=== PATIENT | female | born 1955 | race Caucasian/White ===

== ENCOUNTER 2020-07-25 10:58 | Emergency (ER) | payer MEDICARE, OTHER, SELFPAY ==
[2020-07-25] VITALS (24 sets, daily range): BP systolic 133–190; BP diastolic 67–86; PULSE 74–96; RESP 12–32; TEMP 36.4; O2SAT 97–100; BMI 32.2
--- NOTE | 2020-07-25 11:08 | DI.RAD.S_ITS ---
PROCEDURE: XR CHEST 1V INDICATIONS: chest pain TECHNIQUE: One view of the chest was acquired. COMPARISON: [facility], , CHEST 1 VIEW, 01/01/2018, 16:09. FINDINGS: Surgical changes and devices: None. Lungs and pleura: Lungs are clear. No pleural effusions or pneumothorax. Mediastinum: Mediastinal contours appear normal. Heart size is normal. Bones and chest wall: No suspicious bony lesions. Overlying soft tissues appear unremarkable. IMPRESSION: No acute cardiopulmonary pathology. Dictated by: Harley Lazo M.D. on 07/25/2020 at 10:58 Approved by: Harley Lazo M.D. on 07/25/2020 at 11:01
[2020-07-25] MEDS: ASPIRIN 81 MG CHEW TAB 324 MG PO (11:28)
[2020-07-25 11:29] LABS: Add Manual Diff / Slide Review NO; Basophils Absolute Auto 0 /uL (0-100); Basophils Percent Auto 0.4 % (0-2); Eosinophils Absolute Auto 100 /uL (0-450); Eosinophils Percent Auto 1.3 % (2-4); Hematocrit 42.2 % (36-46); Hemoglobin 14.1 g/dL (12.0-16.0); Lymphocytes Absolute Auto 1100 /uL (1100-4500); Lymphocytes Percent Auto 19.7 % (25-40); Mean Corpuscular HGB Conc 33.5 % (30-36); Mean Corpuscular Hemoglobin 30.1 PG (26-34); Mean Corpuscular Volume 89.9 fL (80-100); Monocytes Absolute Auto 500 /uL (0-900); Monocytes Percent Auto 9.1 % (3-14); Neutrophils Absolute Auto 4100 /uL (1500-7000); Neutrophils Percent Auto 69.5 % (50-75); Platelet Count 169 X10^3/uL (150-400); Red Cell Distribution Width 13.6 % (11.6-14.8); White Blood Cell Count 5.8 X10^3/uL (4.5-11.0)
[2020-07-25] MEDS: NITROGLYCERIN 0.4 MG SL TAB SL ×2 (11:29→12:17)
[2020-07-25 11:32] LABS: INR 1.1 (0.9-1.3); Prothrombin Time 12.8 SECONDS (10.1-12.7)
[2020-07-25] MEDS: ACETAMINOPHEN 325 MG TABLET 975 MG PO (11:33)
[2020-07-25 11:34] LABS: PTT Partial Thromboplastin Tim 31 SECONDS (26.4-36.2)
[2020-07-25 11:36] LABS: Alanine Aminotransferase 28 IU/L (<35); Albumin 4.8 g/dL (3.5-5.0); Albumin Globulin Ratio 1.5 (1.0-2.8); Alkaline Phosphatase 67 U/L (38-126); Aspartate Aminotransferase 37 IU/L (14-36); Bilirubin Total 0.8 mg/dL (0.2-1.3); Blood Urea Nitrogen 17 mg/dL (7-17); Calcium 9.9 mg/dL (8.4-10.2); Carbon Dioxide 26 mmol/L (22-32); Chloride 103 mmol/L (98-107); Creatine Kinase 139 U/L (30-135); Estimated Glomerular Filt Rate > 60.0 mL/min (>60); Globulin 3.3 g/dL (1.7-4.1); Glucose 99 mg/dL (80-110); Lipase 114 U/L (23-300); Potassium 4.1 mmol/L (3.4-5.1); Sodium 141 mmol/L (137-145); Total Protein 8.1 g/dL (6.3-8.2)
[2020-07-25 11:41] LABS: HEMOLYSIS 52 (0-50)
[2020-07-25] MEDS: MAG HYDROX/ALUMINUM/SIMETH SUS 20 ML, LIDOCAINE VISCOUS 2% 15 ML PO (11:45)
[2020-07-25 11:47] LABS: Troponin I < 0.012 ng/mL (0.01-0.034)
[2020-07-25 11:51] LABS: CKMB % Relative Index 0.3 % (1.5-5.0); Creatine Kinase MB 0.38 ng/mL (<2.37)
--- NOTE | 2020-07-25 12:11 | DI.CT.S_ITS ---
PROCEDURE: CT ABDOMEN PELVIS W CON INDICATIONS: Significant epigastric pain, history of hiatal hernia TECHNIQUE: After the administration of intravenous contrast, 5 mm thick sections acquired from the diaphragm to the symphysis. 5 mm coronal and sagittal reformats were acquired. For radiation dose reduction, the following was used: automated exposure control, adjustment of mA and/or kV according to patient size. [facility], CT, PE STUDY (CTA CHEST), 01/01/2018, 17:57. 1.5 centimeter cystCOMPARISON: FINDINGS: Image quality: Excellent. ABDOMEN: Lung bases: Lung bases are clear. Heart size is normal. Solid organs: Liver is normal in size and enhancement. 1.6 centimeter cyst in the right lobe of the liver is stable compared to prior CT examination. 1.3 centimeter cyst in the left lobe of the liver is stable where visualized compared to prior CT examination. Gallbladder contains multiple calcified gallstones.. Biliary system is non dilated. Pancreas enhances normally. Spleen is normal in size and enhancement. No adrenal nodules. Kidneys demonstrate normal size and enhancement, without hydronephrosis. Peritoneum and bowel: Bowel loops demonstrate normal wall thickness and caliber. No free fluid or air. Appendix is normal. Nodes and vessels: No retroperitoneal or mesenteric adenopathy by size criteria. Aorta and inferior vena cava are normal in size. Miscellaneous: No ventral hernias. PELVIS: Genitourinary: Bladder wall thickness is normal. Uterus is absent. Miscellaneous: No inguinal hernias or adenopathy. Bones: No suspicious bony lesions. No vertebral body compression fractures. Spine degenerative disc disease and facet arthropathy. IMPRESSION: 1. Cholelithiasis without CT evidence of cholecystitis. If there is clinical concern for cholecystitis, consider abdominal ultrasound or nuclear medicine HIDA for further evaluation. 2. No free fluid or free air. 3. No dilated loops of bowel. 4. The appendix is normal. Dictated by: Muriel Morin MD, PhD on 07/25/2020 at 12:46 Approved by: Muriel Morin MD, PhD on 07/25/2020 at 12:55
--- NOTE | 2020-07-25 12:14 | ED.CHESTPAIN ---
HPI - Chest Pain <SANDRA Carolina - Last Filed: 07/25/20 20:53> General Chief Complaint: Chest Pain Stated Complaint: tightness in chest/shortness of breath/dizzy Time Seen by Provider: 07/25/20 11:05 Source: patient Mode of arrival: Ambulatory History of Present Illness HPI narrative: 65yo female with a history of a hiatal hernia, presents to the ED for chest tightness that started 4 days ago. Patient states on Friday she moved a few heavy planters around but did not experience any pain. That evening, hearing in chest tightness, shortness of breath, epigastric pain, lightheadedness, nausea, and significant fatigue. Patient states she has had the chest tightness intermittently for the past few days, is worse when she takes a deep breath. This morning the chest tightness started at 0730 and has been consistent today. She denies any history of cardiac issues, no history surgeries on her hiatal hernia. Denies any vomiting, sharp shooting pain, syncope, diarrhea, fevers, cough, sore throat, rhinorrhea, or any other concerns. Patient states she occasionally takes omeprazole for her hiatal hernia. Patient also states she has COPD type respiratory issues, she states she uses her albuterol every once in a while. Has not used her albuterol lately it has been outside with smoke frequently. Related Data Home Medications Medication Instructions Recorded Confirmed albuterol sulfate 1 inh INHALATION QID PRN 07/25/20 07/25/20 duloxetine 30 mg PO DAILY 07/25/20 07/25/20 hydrochlorothiazide 12.5 mg PO DAILY 07/25/20 07/25/20 lidocaine 1 patch TOPICAL DAILY PRN 07/25/20 07/25/20 omeprazole 20 mg PO DAILY PRN 07/25/20 07/25/20 Allergies Allergy/AdvReac Type Severity Reaction Status Date / Time doxycycline [DOXYCYCLINE] AdvReac Mild NAUSEA Verified 07/25/20 11:19 erythromycin base AdvReac Unknown GI UPSET Verified 07/25/20 11:19 [ERYTHROMYCIN BASE] morphine [MORPHINE] AdvReac Unknown HALLUCINATI Verified 07/25/20 11:19 ON Review of Systems <SANDRA Carolina - Last Filed: 07/25/20 20:53> Review of Systems Narrative: REVIEW OF SYSTEMS: GENERAL: Denies fever, chills, malaise, or wt. loss. HENT: No head trauma. EYES: No vision changes. CARDIOVASCULAR: Reports chest tightness, see HPI. RESPIRATORY: No shortness of breath or cough. GASTROINTESTINAL: Complains of epigastric pain, see HPI GENITOURINARY: No flank pain. MUSCULOSKELETAL: No pain, weakness, or trauma. INTEGUMENTARY: No rash, lesions, or pruritus. NEURO: Reports dizziness, see HPI. PSYCH: No behavior or mood changes. Patient History <SANDRA Carolina - Last Filed: 07/25/20 20:53> Medical History Hiatal hernia (Acute) Social History Smoking Status: Never smoker Smoking Status: Never smoker alcohol intake frequency: a few times a month Substance Use Type: does not use Exam <SANDRA Carolina - Last Filed: 07/25/20 20:53> Initial Vital Signs Initial Vital Signs: Vital Signs Temperature 97.6 F 07/25/20 11:05 Pulse Rate 77 07/25/20 11:05 Respiratory Rate 12 07/25/20 11:05 Blood Pressure 190/86 H 07/25/20 11:05 Pulse Oximetry 99 07/25/20 11:05 PHYSICAL EXAMINATION: GENERAL: Well groomed, alert, and cooperative. Answers questions promptly and appropriately. Vital signs noted. HENT: Normocephalic, atraumatic. Hearing intact. Oral mucosa is pink and moist. EYES: Conjunctiva pink, sclera white, no periorbital swelling. CARDIOVASCULAR: S1 and S2 sounds normal. Regular rate and rhythm, no murmurs, clicks, or bruits. 1+ nonpitting edema to left lower extremity, right lower extremity without edema. RESPIRATORY: Normal respiratory rate, trachea midline, airway patent. No stridor, nasal flaring or accessory muscle use. Lungs are clear in all scherer without wheeze, rhonchi, or crackles. GASTROINTESTINAL: Bowel sounds normoactive. Abdomen is soft, epigastric tenderness palpation.. No organomegaly, no palpable masses. GENITALURINARY: No flank tenderness. MUSCULOSKELETAL: Normal gait and coordination. Equal tone and mass bilaterally. EXTREMITIES: CMS intact, no pedal edema. SKIN: Warm, dry, soft, appropriate color for ethnicity. No lesions, rashes, or wounds to visualized areas. NEURO: Alert and Oriented X 3. Good coordination. No ataxia, or sensory deficits, or cognitive issues. PSYCH: Appropriate affect and mood. <Naman Colón MD - Last Filed: 08/22/20 03:07> Initial Vital Signs Initial Vital Signs: Vital Signs Temperature 97.6 F 07/25/20 11:05 Pulse Rate 77 07/25/20 11:05 Respiratory Rate 12 07/25/20 11:05 Blood Pressure 190/86 H 07/25/20 11:05 Pulse Oximetry 99 07/25/20 11:05 Scores <SANDRA Carolina - Last Filed: 07/25/20 20:53> HEART Score Heart Score history: Moderately Suspicious Heart Score EKG: Normal Heart Score Age: 45-64 years old Heart Score risk factors: 1-2 risk factors Heart Score troponin: < or = to normal limit Heart Score Total: 3 PERC Score Age greater than or equal to 50 years: Yes Heart rate greater than or equal to 100 bpm: No Room Air O2 Sat less than 95%: No Unilateral leg swelling: Yes Recent trauma or surgery: No Hemoptysis: No Prior PE or DVT: No Hormone Use: No Total PERC Score: 2 Course <SANDRA Carolina - Last Filed: 07/25/20 20:53> Course Course Narrative: Patient was given nitroglycerin, no relief of pain but patient did report headache. Additionally, patient was given GI cocktail, no relief of pain, actually reported increased epigastric irritation post GI cocktail. Cough for inhaler to patient to try to relieve symptoms, patient declined at this time. 1503: Spoke to Dr. Coe about possible admission, discussed heart score of 3 which is low risk. Discussed repeat troponin and EKG then discharge. Orders Ordered: Discontinued Medications Acetaminophen (Tylenol) 975 mg PO NOW ONE Stop: 07/25/20 11:32 Last Admin: 07/25/20 11:33 Dose: 975 mg Documented by: RHINA Aspirin (Aspirin Chew) 324 mg PO NOW ONE Stop: 07/25/20 11:20 Last Admin: 07/25/20 11:28 Dose: 324 mg Documented by: RHINA Al Hydrox/Mg Hydrox/Simethicone 20 ml/ Lidocaine HCl 15 ml 0 ml PO NOW ONE Stop: 07/25/20 11:41 Last Admin: 07/25/20 11:45 Dose: 45 ml Documented by: RHINA Nitroglycerin (Nitrostat) 0.4 mg SL [id number] PRN PRN Reason: Chest Pain Last Admin: 07/25/20 12:17 Dose: 0.4 mg Documented by: Admin: 07/25/20 11:29 Dose: 0.4 mg Documented by: RHINA Pantoprazole Sodium (Protonix) 40 mg IV NOW ONE Stop: 07/25/20 12:18 Last Admin: 07/25/20 12:59 Dose: 40 mg Documented by: TIANNA Consultations Consultation #1: Patient staffed with Dr. Cloón, discussed test, test results, and plan of care. Vital Signs Vital signs: Vital Signs - 8 hr 07/25/20 13:00 07/25/20 13:15 07/25/20 13:30 Pulse Rate 79 74 81 Respiratory Rate 31 H 20 17 Blood Pressure Pulse Oximetry 99 98 99 07/25/20 14:00 07/25/20 14:30 07/25/20 15:00 Pulse Rate 78 75 81 Respiratory Rate 22 16 21 Blood Pressure Pulse Oximetry 99 99 99 07/25/20 15:30 07/25/20 15:46 Pulse Rate 75 75 Respiratory Rate 18 15 Blood Pressure 150/74 H Pulse Oximetry 99 99 <Naman Colón MD - Last Filed: 08/22/20 03:07> Orders Ordered: Discontinued Medications Acetaminophen (Tylenol) 975 mg PO NOW ONE Stop: 07/25/20 11:32 Last Admin: 07/25/20 11:33 Dose: 975 mg Documented by: RHINA Aspirin (Aspirin Chew) 324 mg PO NOW ONE Stop: 07/25/20 11:20 Last Admin: 07/25/20 11:28 Dose: 324 mg Documented by: RHINA Al Hydrox/Mg Hydrox/Simethicone 20 ml/ Lidocaine HCl 15 ml 0 ml PO NOW ONE Stop: 07/25/20 11:41 Last Admin: 07/25/20 11:45 Dose: 45 ml Documented by: RHINA Nitroglycerin (Nitrostat) 0.4 mg SL [id number] PRN PRN Reason: Chest Pain Last Admin: 07/25/20 12:17 Dose: 0.4 mg Documented by: Admin: 07/25/20 11:29 Dose: 0.4 mg Documented by: RHINA Pantoprazole Sodium (Protonix) 40 mg IV NOW ONE Stop: 07/25/20 12:18 Last Admin: 07/25/20 12:59 Dose: 40 mg Documented by: TIANNA Vital Signs Vital signs: Vital Signs - 8 hr 07/25/20 13:00 07/25/20 13:15 07/25/20 13:30 Pulse Rate 79 74 81 Respiratory Rate 31 H 20 17 Blood Pressure Pulse Oximetry 99 98 99 07/25/20 14:00 07/25/20 14:30 07/25/20 15:00 Pulse Rate 78 75 81 Respiratory Rate 22 16 21 Blood Pressure Pulse Oximetry 99 99 99 07/25/20 15:30 07/25/20 15:46 Pulse Rate 75 75 Respiratory Rate 18 15 Blood Pressure 150/74 H Pulse Oximetry 99 99 MDM - Chest Pain <SANDRA Carolina - Last Filed: 07/25/20 20:53> Medical Records Data Attestation: I reviewed the patient's medical records. Lab Data Attestation: I reviewed the patient's lab results. Result diagrams: 07/25/20 11:16 07/25/20 11:16 Labs: Lab Results 07/25/20 07/25/20 07/25/20 Range/Units 11:16 11:16 11:16 WBC 5.8 (4.5-11.0) X10^3/uL RBC 4.70 (4.0-5.2) X10^6/uL Hgb 14.1 (12.0-16.0) g/dL Hct 42.2 (36-46) % MCV 89.9 (80-100) fL MCH 30.1 (26-34) PG MCHC 33.5 (30-36) % RDW 13.6 (11.6-14.8) % Plt Count 169 (150-400) X10^3/uL Neut % (Auto) 69.5 (50-75) % Lymph % (Auto) 19.7 L (25-40) % [place] % (Auto) 9.1 (3-14) % Eos % (Auto) 1.3 L (2-4) % Baso % (Auto) 0.4 (0-2) % Neut # (Auto) 4100 (2536-9069) /uL Lymph # (Auto) 1100 (4048-8644) /uL [place] # (Auto) 500 (0-900) /uL Eos # (Auto) 100 (0-450) /uL Baso # (Auto) 0 (0-100) /uL PT 12.8 H (10.1-12.7) SECONDS INR 1.1 (0.9-1.3) APTT 31 (26.4-36.2) SECONDS D-Dimer (<230) ng/mL Sodium 141 (137-145) mmol/L Potassium 4.1 (3.4-5.1) mmol/L Chloride 103 (98-107) mmol/L Carbon Dioxide 26 (22-32) mmol/L BUN 17 (7-17) mg/dL Creatinine 0.68 (0.52-1.04) mg/dL Estimated GFR > 60.0 (>60) mL/min BUN/Creatinine Ratio 25.0 H (6-22) Glucose 99 (80-110) mg/dL Calcium 9.9 (8.4-10.2) mg/dL Total Bilirubin 0.8 (0.2-1.3) mg/dL AST 37 H (14-36) IU/L ALT 28 (<35) IU/L Alkaline Phosphatase 67 (38-126) U/L Total Creatine Kinase 139 H (30-135) U/L CK-MB (CK-2) 0.38 (<2.37) ng/mL CK-MB (CK-2) Rel Index 0.3 L (1.5-5.0) % Troponin I < 0.012 (0.01-0.034) ng/mL NT-Pro-B Natriuret Pep (<125) pg/mL Total Protein 8.1 (6.3-8.2) g/dL Albumin 4.8 (3.5-5.0) g/dL Globulin 3.3 (1.7-4.1) g/dL Albumin/Globulin Ratio 1.5 (1.0-2.8) Lipase 114 (23-300) U/L COVID-19 PCR (Negative) 07/25/20 07/25/20 07/25/20 Range/Units 11:16 14:06 14:06 WBC (4.5-11.0) X10^3/uL RBC (4.0-5.2) X10^6/uL Hgb (12.0-16.0) g/dL Hct (36-46) % MCV (80-100) fL MCH (26-34) PG MCHC (30-36) % RDW (11.6-14.8) % Plt Count (150-400) X10^3/uL Neut % (Auto) (50-75) % Lymph % (Auto) (25-40) % [place] % (Auto) (3-14) % Eos % (Auto) (2-4) % Baso % (Auto) (0-2) % Neut # (Auto) (3025-9594) /uL Lymph # (Auto) (3950-9673) /uL [place] # (Auto) (0-900) /uL Eos # (Auto) (0-450) /uL Baso # (Auto) (0-100) /uL PT (10.1-12.7) SECONDS INR (0.9-1.3) APTT (26.4-36.2) SECONDS D-Dimer < 200 (<230) ng/mL Sodium (137-145) mmol/L Potassium (3.4-5.1) mmol/L Chloride (98-107) mmol/L Carbon Dioxide (22-32) mmol/L BUN (7-17) mg/dL Creatinine (0.52-1.04) mg/dL Estimated GFR (>60) mL/min BUN/Creatinine Ratio (6-22) Glucose (80-110) mg/dL Calcium (8.4-10.2) mg/dL Total Bilirubin (0.2-1.3) mg/dL AST (14-36) IU/L ALT (<35) IU/L Alkaline Phosphatase (38-126) U/L Total Creatine Kinase (30-135) U/L CK-MB (CK-2) (<2.37) ng/mL CK-MB (CK-2) Rel Index (1.5-5.0) % Troponin I < 0.012 (0.01-0.034) ng/mL NT-Pro-B Natriuret Pep 130 H (<125) pg/mL Total Protein (6.3-8.2) g/dL Albumin (3.5-5.0) g/dL Globulin (1.7-4.1) g/dL Albumin/Globulin Ratio (1.0-2.8) Lipase (23-300) U/L COVID-19 PCR (Negative) 07/25/20 Range/Units 15:00 WBC (4.5-11.0) X10^3/uL RBC (4.0-5.2) X10^6/uL Hgb (12.0-16.0) g/dL Hct (36-46) % MCV (80-100) fL MCH (26-34) PG MCHC (30-36) % RDW (11.6-14.8) % Plt Count (150-400) X10^3/uL Neut % (Auto) (50-75) % Lymph % (Auto) (25-40) % [place] % (Auto) (3-14) % Eos % (Auto) (2-4) % Baso % (Auto) (0-2) % Neut # (Auto) (2175-5900) /uL Lymph # (Auto) (4629-4346) /uL [place] # (Auto) (0-900) /uL Eos # (Auto) (0-450) /uL Baso # (Auto) (0-100) /uL PT (10.1-12.7) SECONDS INR (0.9-1.3) APTT (26.4-36.2) SECONDS D-Dimer (<230) ng/mL Sodium (137-145) mmol/L Potassium (3.4-5.1) mmol/L Chloride (98-107) mmol/L Carbon Dioxide (22-32) mmol/L BUN (7-17) mg/dL Creatinine (0.52-1.04) mg/dL Estimated GFR (>60) mL/min BUN/Creatinine Ratio (6-22) Glucose (80-110) mg/dL Calcium (8.4-10.2) mg/dL Total Bilirubin (0.2-1.3) mg/dL AST (14-36) IU/L ALT (<35) IU/L Alkaline Phosphatase (38-126) U/L Total Creatine Kinase (30-135) U/L CK-MB (CK-2) (<2.37) ng/mL CK-MB (CK-2) Rel Index (1.5-5.0) % Troponin I (0.01-0.034) ng/mL NT-Pro-B Natriuret Pep (<125) pg/mL Total Protein (6.3-8.2) g/dL Albumin (3.5-5.0) g/dL Globulin (1.7-4.1) g/dL Albumin/Globulin Ratio (1.0-2.8) Lipase (23-300) U/L COVID-19 PCR Negative (Negative) Imaging Data Chest x-ray: Radiologist's Impression: [address] [address] XRay Report Signed Patient: Lorna Mcdonald EMR#: [id number] : 5Acct:[id number] Age/Sex: 65 / FDate of Service: 07/25/20 Loc: ED Accession Number: [id number] Procedure: XR chest 1V Ordering Provider: Naman Colón MD PROCEDURE: XR CHEST 1V INDICATIONS: chest pain TECHNIQUE: One view of the chest was acquired. COMPARISON: [facility], , CHEST 1 VIEW, 01/01/2018, 16:09. FINDINGS: Surgical changes and devices: None. Lungs and pleura: Lungs are clear. No pleural effusions or pneumothorax. Mediastinum: Mediastinal contours appear normal. Heart size is normal. Bones and chest wall: No suspicious bony lesions. Overlying soft tissues appear unremarkable. IMPRESSION: No acute cardiopulmonary pathology. Dictated by: Harley Lazo M.D. on 07/25/2020 at 10:58 Approved by: Harley Lazo M.D. on 07/25/2020 at 11:01 ECG Data Interpretation: 1104: Rate 76, NJ interval 150, QTC 423. No ST elevation or ST depression. T-wave inversion noted in V1. No ectopy. EKG also viewed Dr. Colón per protocol. 1516: Sinus rhythm, rate 73, NJ interval 174, QTC 438. No ST elevation or ST depression. T-wave inversion noted in V1. No ST. EKG also viewed by Dr. Colón. No changes from previous EKG today. [facility] Narrative Medical decision making narrative: 65-year-old female presenting to the emergency department for epigastric pain, fatigue, and shortness of breath. Unsure exact etiology, concern for acid reflux aggravating possible reactive airway disease. Less concern for PE given negative D-dimer, patient is non tachycardic and non tachypneic. Pulse ox within normal limits. Less concern for cardiac etiology given negative serial EKGs and troponins, no relief with Nitro. Less concern for incarcerated hiatal hernia or worsened hiatal hernia given lack of bulge or concerning symptoms seen on abdominal CT. Less concern for infection given lack of cough, afebrile, non tachycardic, lungs clear. Less concern for CHF, given negative BNP, no significant pitting bilateral lower edema. Attempted to offer computer inhaler to assess possibl e reactive airway disease, patient declined at this time. She remained alert and oriented, hemodynamically stable, able to ambulate without any difficulty. After discussion with hospitalist and attending ED physician, patient was consider the risks and discharge with close follow-up. Return precautions given for new worsening symptoms. Patient agreed to plan of care verbalized understanding <Naman Colón MD - Last Filed: 08/22/20 03:07> Lab Data Labs: Lab Results 07/25/20 07/25/20 07/25/20 Range/Units 11:16 11:16 11:16 WBC 5.8 (4.5-11.0) X10^3/uL RBC 4.70 (4.0-5.2) X10^6/uL Hgb 14.1 (12.0-16.0) g/dL Hct 42.2 (36-46) % MCV 89.9 (80-100) fL MCH 30.1 (26-34) PG MCHC 33.5 (30-36) % RDW 13.6 (11.6-14.8) % Plt Count 169 (150-400) X10^3/uL Neut % (Auto) 69.5 (50-75) % Lymph % (Auto) 19.7 L (25-40) % [place] % (Auto) 9.1 (3-14) % Eos % (Auto) 1.3 L (2-4) % Baso % (Auto) 0.4 (0-2) % Neut # (Auto) 4100 (4725-1969) /uL Lymph # (Auto) 1100 (6217-9602) /uL [place] # (Auto) 500 (0-900) /uL Eos # (Auto) 100 (0-450) /uL Baso # (Auto) 0 (0-100) /uL PT 12.8 H (10.1-12.7) SECONDS INR 1.1 (0.9-1.3) APTT 31 (26.4-36.2) SECONDS D-Dimer (<230) ng/mL Sodium 141 (137-145) mmol/L Potassium 4.1 (3.4-5.1) mmol/L Chloride 103 (98-107) mmol/L Carbon Dioxide 26 (22-32) mmol/L BUN 17 (7-17) mg/dL Creatinine 0.68 (0.52-1.04) mg/dL Estimated GFR > 60.0 (>60) mL/min BUN/Creatinine Ratio 25.0 H (6-22) Glucose 99 (80-110) mg/dL Calcium 9.9 (8.4-10.2) mg/dL Total Bilirubin 0.8 (0.2-1.3) mg/dL AST 37 H (14-36) IU/L ALT 28 (<35) IU/L Alkaline Phosphatase 67 (38-126) U/L Total Creatine Kinase 139 H (30-135) U/L CK-MB (CK-2) 0.38 (<2.37) ng/mL CK-MB (CK-2) Rel Index 0.3 L (1.5-5.0) % Troponin I < 0.012 (0.01-0.034) ng/mL NT-Pro-B Natriuret Pep (<125) pg/mL Total Protein 8.1 (6.3-8.2) g/dL Albumin 4.8 (3.5-5.0) g/dL Globulin 3.3 (1.7-4.1) g/dL Albumin/Globulin Ratio 1.5 (1.0-2.8) Lipase 114 (23-300) U/L COVID-19 PCR (Negative) 07/25/20 07/25/20 07/25/20 Range/Units 11:16 14:06 14:06 WBC (4.5-11.0) X10^3/uL RBC (4.0-5.2) X10^6/uL Hgb (12.0-16.0) g/dL Hct (36-46) % MCV (80-100) fL MCH (26-34) PG MCHC (30-36) % RDW (11.6-14.8) % Plt Count (150-400) X10^3/uL Neut % (Auto) (50-75) % Lymph % (Auto) (25-40) % [place] % (Auto) (3-14) % Eos % (Auto) (2-4) % Baso % (Auto) (0-2) % Neut # (Auto) (9593-1932) /uL Lymph # (Auto) (9228-5068) /uL [place] # (Auto) (0-900) /uL Eos # (Auto) (0-450) /uL Baso # (Auto) (0-100) /uL PT (10.1-12.7) SECONDS INR (0.9-1.3) APTT (26.4-36.2) SECONDS D-Dimer < 200 (<230) ng/mL Sodium (137-145) mmol/L Potassium (3.4-5.1) mmol/L Chloride (98-107) mmol/L Carbon Dioxide (22-32) mmol/L BUN (7-17) mg/dL Creatinine (0.52-1.04) mg/dL Estimated GFR (>60) mL/min BUN/Creatinine Ratio (6-22) Glucose (80-110) mg/dL Calcium (8.4-10.2) mg/dL Total Bilirubin (0.2-1.3) mg/dL AST (14-36) IU/L ALT (<35) IU/L Alkaline Phosphatase (38-126) U/L Total Creatine Kinase (30-135) U/L CK-MB (CK-2) (<2.37) ng/mL CK-MB (CK-2) Rel Index (1.5-5.0) % Troponin I < 0.012 (0.01-0.034) ng/mL NT-Pro-B Natriuret Pep 130 H (<125) pg/mL Total Protein (6.3-8.2) g/dL Albumin (3.5-5.0) g/dL Globulin (1.7-4.1) g/dL Albumin/Globulin Ratio (1.0-2.8) Lipase (23-300) U/L COVID-19 PCR (Negative) 07/25/20 Range/Units 15:00 WBC (4.5-11.0) X10^3/uL RBC (4.0-5.2) X10^6/uL Hgb (12.0-16.0) g/dL Hct (36-46) % MCV (80-100) fL MCH (26-34) PG MCHC (30-36) % RDW (11.6-14.8) % Plt Count (150-400) X10^3/uL Neut % (Auto) (50-75) % Lymph % (Auto) (25-40) % [place] % (Auto) (3-14) % Eos % (Auto) (2-4) % Baso % (Auto) (0-2) % Neut # (Auto) (1643-1700) /uL Lymph # (Auto) (8199-2417) /uL [place] # (Auto) (0-900) /uL Eos # (Auto) (0-450) /uL Baso # (Auto) (0-100) /uL PT (10.1-12.7) SECONDS INR (0.9-1.3) APTT (26.4-36.2) SECONDS D-Dimer (<230) ng/mL Sodium (137-145) mmol/L Potassium (3.4-5.1) mmol/L Chloride (98-107) mmol/L Carbon Dioxide (22-32) mmol/L BUN (7-17) mg/dL Creatinine (0.52-1.04) mg/dL Estimated GFR (>60) mL/min BUN/Creatinine Ratio (6-22) Glucose (80-110) mg/dL Calcium (8.4-10.2) mg/dL Total Bilirubin (0.2-1.3) mg/dL AST (14-36) IU/L ALT (<35) IU/L Alkaline Phosphatase (38-126) U/L Total Creatine Kinase (30-135) U/L CK-MB (CK-2) (<2.37) ng/mL CK-MB (CK-2) Rel Index (1.5-5.0) % Troponin I (0.01-0.034) ng/mL NT-Pro-B Natriuret Pep (<125) pg/mL Total Protein (6.3-8.2) g/dL Albumin (3.5-5.0) g/dL Globulin (1.7-4.1) g/dL Albumin/Globulin Ratio (1.0-2.8) Lipase (23-300) U/L COVID-19 PCR Negative (Negative) Discharge Plan Departure Patient Disposition: Home Clinical Impression: Chest tightness Discharge Date/Time: 07/25/20 16:05 Instructions: DI for Atypical Chest Pain Activity Restrictions/Additional Instructions: Thank you for entrusting me with your care today. As discussed, your laboratory work, abdominal CT, chest x-ray, and COVID-19 swab are negative for any concerning findings. Am unsure the exact cause of your pain, this means it is very important that you call your primary care provider to follow-up within the next 1-2 weeks for further evaluation and testing if indicated. I suggest taking Pepcid, which is [id number] 1 to 2 times a day to help with acid reflux. Additionally, use your albuterol inhaler for shortness of breath over the next few days to help decrease symptoms. Return emergency department for any new or worsening symptoms at any point. Prescriptions: No Action lidocaine 5 % adhesive patch,medicated 1 patch topical DAILY PRN (Reason: pain / discomfort) RF: 0 omeprazole 20 mg capsule,delayed release(DR/EC) 20 mg PO DAILY PRN (Reason: reflux) RF: 0 duloxetine 30 mg capsule,delayed release(DR/EC) 30 mg PO DAILY RF: 0 hydrochlorothiazide 12.5 mg tablet 12.5 mg PO DAILY RF: 0 albuterol sulfate 90 mcg/actuation Hfa Aerosol Inhaler 1 inh INHALATION QID PRN (Reason: Wheezing) RF: 0 Referrals: Rose Ernst PA-C [Primary Care Provider] -
--- NOTE | 2020-07-25 12:21 | PC.NURSE ---
Patient reports she noticed the GI cocktail aleman off while 2nd nitro was dissolving. Patient states discomfort is actually .5 worse. I just feel like I can't relax, I feel jittery
[2020-07-25 12:56] LABS: NT-proBNP (BNP-Adult 18+) 130 pg/mL (<125)
[2020-07-25] MEDS: PANTOPRAZOLE 40 MG VIAL IV (12:59)
[2020-07-25 14:30] LABS: D Dimer < 200 ng/mL (<230)
[2020-07-25 15:35] LABS: Troponin I < 0.012 ng/mL (0.01-0.034)
[2020-07-25 15:38] LABS: COVID19 -Nasal RAPID Negative (Negative)
== END 2020-07-25 16:05 | disposition home or self-care (01) ==
PROVIDERS: Emergency Medicine; Emergency Provider Nurse Practitioner; PCP Physician Assistant
DX: R07.89 Other chest pain (principal)
CPT/HCPCS: 36415; 71045; 74177; 80053; 82550; 82553; 83690; 83880; 84484; 85025; 85379; 85610; 85730; 87635; 93005; 96374; 99284; 99285; C9113

== ENCOUNTER 2021-10-29 12:26 | Emergency (ER) | payer MEDICARE, OTHER, SELFPAY ==
[2021-10-29] VITALS (30 sets, daily range): BP systolic 135–201; BP diastolic 63–92; PULSE 68–82; RESP 20–31; TEMP 36.4; O2SAT 98–100; BMI 34.3
--- NOTE | 2021-10-29 12:38 | DI.RAD.S_ITS ---
PROCEDURE: XR CHEST 1V INDICATIONS: chest pain TECHNIQUE: One view of the chest was acquired. COMPARISON: [facility], CR, XR CHEST 1V, 07/25/2020, 11:10. FINDINGS: Surgical changes and devices: None. Lungs and pleura: Lungs are clear. No pleural effusions or pneumothorax. Mediastinum: Mediastinal contours appear unchanged. Heart size is normal. Bones and chest wall: No suspicious bony lesions. Overlying soft tissues appear unremarkable. IMPRESSION: No acute cardiopulmonary abnormality. Dictated by: Dhruv Maurer M.D. on 10/29/2021 at 13:05 Approved by: Dhruv Maurer M.D. on 10/29/2021 at 13:06
[2021-10-29 13:01] LABS: Add Manual Diff / Slide Review NO; Basophils Absolute Auto 0 /uL (0-100); Basophils Percent Auto 0.5 % (0-2); Eosinophils Absolute Auto 100 /uL (0-450); Hematocrit 42.1 % (36-46); Hemoglobin 14.3 g/dL (12.0-16.0); Lymphocytes Absolute Auto 1100 /uL (1100-4500); Lymphocytes Percent Auto 19.1 % (25-40); Mean Corpuscular HGB Conc 34.1 % (30-36); Mean Corpuscular Hemoglobin 30.3 PG (26-34); Mean Corpuscular Volume 88.8 fL (80-100); Monocytes Absolute Auto 500 /uL (0-900); Monocytes Percent Auto 8.4 % (3-14); Neutrophils Absolute Auto 4000 /uL (1500-7000); Platelet Count 160 X10^3/uL (150-400); Red Blood Cell Count 4.74 X10^6/uL (4.0-5.2); White Blood Cell Count 5.8 X10^3/uL (4.5-11.0)
[2021-10-29 13:10] LABS: Alanine Aminotransferase 20 IU/L (<35); Albumin 4.8 g/dL (3.5-5.0); Albumin Globulin Ratio 1.4 (1.0-2.8); Alkaline Phosphatase 61 U/L (38-126); Aspartate Aminotransferase 29 IU/L (14-36); BUN Creatinine Ratio 26.3 (6-22); Bilirubin Total 0.7 mg/dL (0.2-1.3); Blood Urea Nitrogen 20 mg/dL (7-17); Calcium 10.4 mg/dL (8.4-10.2); Carbon Dioxide 24 mmol/L (22-32); Chloride 106 mmol/L (98-107); Creatine Kinase 40 U/L (30-135); Estimated Glomerular Filt Rate > 60.0 mL/min (>60); Globulin 3.5 g/dL (1.7-4.1); Glucose 109 mg/dL (80-110); HEMOLYSIS 25 (0-50); Lipase 82 U/L (23-300); Magnesium 1.9 mg/dL (1.6-2.3); Potassium 3.9 mmol/L (3.4-5.1); Sodium 141 mmol/L (137-145); Total Protein 8.3 g/dL (6.3-8.2)
[2021-10-29 13:21] LABS: Troponin I < 0.012 ng/mL (0.01-0.034)
[2021-10-29 13:34] LABS: COVID19 - ADMIT (NP swab/PCR) Negative (Negative)
[2021-10-29] MEDS: MAG HYDROX/ALUMINUM/SIMETH SUS 20 ML, LIDOCAINE VISCOUS 2% 15 ML PO (13:43)
[2021-10-29 16:25] LABS: Troponin I < 0.012 ng/mL (0.01-0.034)
--- NOTE | 2021-10-29 18:31 | ED.CHESTPAIN ---
HPI - Chest Pain General Chief Complaint: Chest Pain Stated Complaint: Chest Pain/SOB Time Seen by Provider: 10/29/21 18:05 Source: patient Mode of arrival: Ambulatory Limitations: no limitations Limitations: no limitations History of Present Illness HPI narrative: Patient is a 66-year-old female who arrives emergency department for evaluation of chest discomfort and shortness of breath. She does have a hiatal hernia. She has had discomfort for the past couple days. She states that Nexium gives her constipation so she is not on any reflux medications. Discomfort does not change with eating or movement. Not worse with palpation. She did receive a GI cocktail prior to my evaluation which potentially help her symptoms small amount. Related Data Home Medications Medication Instructions Recorded Confirmed albuterol sulfate 90 mcg/actuation 1 inh INHALATION QID PRN 07/25/20 10/29/21 aerosol inhaler duloxetine 30 mg capsule,delayed 90 mg PO QAM 07/25/20 10/29/21 release hydrochlorothiazide 12.5 mg tablet 12.5 mg PO DAILY 07/25/20 10/29/21 lidocaine 5 % topical patch 1 patch TOPICAL DAILY PRN 07/25/20 10/29/21 Previous Rx's Medication Instructions Recorded sucralfate 100 mg/mL oral 10 ml PO QACHS #420 ml 10/29/21 suspension (Carafate) Allergies Allergy/AdvReac Type Severity Reaction Status Date / Time doxycycline [DOXYCYCLINE] AdvReac Mild NAUSEA Verified 10/29/21 13:19 erythromycin base AdvReac Unknown GI UPSET Verified 10/29/21 13:19 [ERYTHROMYCIN BASE] morphine [MORPHINE] AdvReac Unknown HALLUCINATI Verified 10/29/21 13:19 ON Review of Systems Constitutional Constitutional: Reports system reviewed and no additional complaints, except as documented and Denies fever(s) Cardiovascular Cardiovascular: Reports as per HPI and Reports system reviewed and no additional complaints, except as documented Respiratory Respiratory: Reports as per HPI and Reports system reviewed and no additional complaints, except as documented Gastrointestinal Gastrointestinal: Denies change in bowel habits, Denies nausea and Denies vomiting Genitourinary Genitourinary: Reports system reviewed and no additional complaints, except as documented Musculoskeletal Musculoskeletal: Reports system reviewed and no additional complaints, except as documented Integumentary/Breasts Skin/Breast: Reports system reviewed and no additional complaints, except as documented Neurologic Neurologic: Reports system reviewed and no additional complaints, except as documented Hematologic/Lymphatic On Anticoagulants: No Patient History Medical History Hiatal hernia Social History Smoking Status: Never smoker Smoking Status: Never smoker alcohol intake frequency: a few times a month Substance Use Type: does not use Exam Initial Vital Signs Initial Vital Signs: Vital Signs Temperature 97.5 F L 10/29/21 12:30 Pulse Rate 80 10/29/21 12:30 Respiratory Rate 20 10/29/21 12:30 Blood Pressure 201/92 H 10/29/21 12:30 Pulse Oximetry 98 10/29/21 12:30 HENMT Head: normal to inspection and normocephalic Resp Effort & Inspection: normal respiratory effort Auscultation: clear to auscultation bilaterally Cardio Rate: regular rate Rhythm: regular rhythm GI Inspection: normal to inspection Palpation: soft, No firm and No tender Skin General: no rashes or lesions noted Neuro General: patient alert, patient awake, patient oriented x3 and moves all extremities Speech: speech normal Gait: normal gait Extrem General: normal to inspection and capillary refill normal Psych Appearance: grossly normal and well kempt Course Orders Ordered: ED Orders 10/29/21 15:40 EKG-12 Lead Stat 10/29/21 15:55 Troponin I Stat Discontinued Medications Al Hydrox/Mg Hydrox/Simethicone 20 ml/ Lidocaine HCl 15 ml 0 ml PO NOW ONE Stop: 10/29/21 13:30 Last Admin: 10/29/21 13:43 Dose: 35 ml Documented by: RHINA Vital Signs Vital signs: Vital Signs - 8 hr 10/29/21 16:45 10/29/21 17:00 10/29/21 17:01 Pulse Rate 72 79 Respiratory Rate 23 22 Blood Pressure 135/63 Pulse Oximetry 99 98 10/29/21 17:15 10/29/21 17:30 10/29/21 17:45 Pulse Rate 78 77 80 Respiratory Rate 22 20 28 H Blood Pressure 141/67 H Pulse Oximetry 99 99 99 10/29/21 18:00 10/29/21 18:15 10/29/21 18:30 Pulse Rate 82 81 78 Respiratory Rate 27 H 28 H 31 H Blood Pressure 152/83 H 166/88 H Pulse Oximetry 98 98 99 10/29/21 18:45 Pulse Rate 79 Respiratory Rate 29 H Blood Pressure Pulse Oximetry 99 MDM - Chest Pain Lab Data Attestation: I reviewed the patient's lab results. Result diagrams: 10/29/21 12:47 10/29/21 12:47 Labs: Lab Results 10/29/21 10/29/21 10/29/21 Range/Units 12:47 12:47 12:50 WBC 5.8 (4.5-11.0) X10^3/uL RBC 4.74 (4.0-5.2) X10^6/uL Hgb 14.3 (12.0-16.0) g/dL Hct 42.1 (36-46) % MCV 88.8 (80-100) fL MCH 30.3 (26-34) PG MCHC 34.1 (30-36) % RDW 14.0 (11.6-14.8) % Plt Count 160 (150-400) X10^3/uL Neut % (Auto) 70.0 (50-75) % Lymph % (Auto) 19.1 L (25-40) % [place] % (Auto) 8.4 (3-14) % Eos % (Auto) 2.0 (2-4) % Baso % (Auto) 0.5 (0-2) % Neut # (Auto) 4000 (1384-5187) /uL Lymph # (Auto) 1100 (3077-2558) /uL [place] # (Auto) 500 (0-900) /uL Eos # (Auto) 100 (0-450) /uL Baso # (Auto) 0 (0-100) /uL Sodium 141 (137-145) mmol/L Potassium 3.9 (3.4-5.1) mmol/L Chloride 106 (98-107) mmol/L Carbon Dioxide 24 (22-32) mmol/L BUN 20 H (7-17) mg/dL Creatinine 0.76 (0.52-1.04) mg/dL Estimated GFR > 60.0 (>60) mL/min BUN/Creatinine Ratio 26.3 H (6-22) Glucose 109 (80-110) mg/dL Calcium 10.4 H (8.4-10.2) mg/dL Magnesium 1.9 (1.6-2.3) mg/dL Total Bilirubin 0.7 (0.2-1.3) mg/dL AST 29 (14-36) IU/L ALT 20 (<35) IU/L Alkaline Phosphatase 61 (38-126) U/L Total Creatine Kinase 40 (30-135) U/L CK-MB (CK-2) TNP CK-MB (CK-2) Rel Index TNP Troponin I < 0.012 (0.01-0.034) ng/mL Total Protein 8.3 H (6.3-8.2) g/dL Albumin 4.8 (3.5-5.0) g/dL Globulin 3.5 (1.7-4.1) g/dL Albumin/Globulin Ratio 1.4 (1.0-2.8) Lipase 82 (23-300) U/L SARS-CoV-2 (PCR) Negative (Negative) 10/29/21 Range/Units 15:55 WBC (4.5-11.0) X10^3/uL RBC (4.0-5.2) X10^6/uL Hgb (12.0-16.0) g/dL Hct (36-46) % MCV (80-100) fL MCH (26-34) PG MCHC (30-36) % RDW (11.6-14.8) % Plt Count (150-400) X10^3/uL Neut % (Auto) (50-75) % Lymph % (Auto) (25-40) % [place] % (Auto) (3-14) % Eos % (Auto) (2-4) % Baso % (Auto) (0-2) % Neut # (Auto) (0405-1769) /uL Lymph # (Auto) (6214-8747) /uL [place] # (Auto) (0-900) /uL Eos # (Auto) (0-450) /uL Baso # (Auto) (0-100) /uL Sodium (137-145) mmol/L Potassium (3.4-5.1) mmol/L Chloride (98-107) mmol/L Carbon Dioxide (22-32) mmol/L BUN (7-17) mg/dL Creatinine (0.52-1.04) mg/dL Estimated GFR (>60) mL/min BUN/Creatinine Ratio (6-22) Glucose (80-110) mg/dL Calcium (8.4-10.2) mg/dL Magnesium (1.6-2.3) mg/dL Total Bilirubin (0.2-1.3) mg/dL AST (14-36) IU/L ALT (<35) IU/L Alkaline Phosphatase (38-126) U/L Total Creatine Kinase (30-135) U/L CK-MB (CK-2) CK-MB (CK-2) Rel Index Troponin I < 0.012 (0.01-0.034) ng/mL Total Protein (6.3-8.2) g/dL Albumin (3.5-5.0) g/dL Globulin (1.7-4.1) g/dL Albumin/Globulin Ratio (1.0-2.8) Lipase (23-300) U/L SARS-CoV-2 (PCR) (Negative) Imaging Data Chest x-ray: Radiologist's Impression: [address] [address] XRay Report Signed Patient: Lorna Mcdonald MR#: [id number] : 1955 Acct:[id number] Age/Sex: 66 / F Date of Service: 10/29/21 Loc: ED Accession Number: [id number] ?? Procedure: XR chest 1V Ordering Provider: Linda Blank MD PROCEDURE:? XR CHEST 1V ? INDICATIONS:? chest pain ? TECHNIQUE:? One view of the chest was acquired.? ? COMPARISON:? [facility], , XR CHEST 1V, 07/25/2020, 11:10. ? FINDINGS:? ? Surgical changes and devices:? None.? ? Lungs and pleura:? Lungs are clear.? No pleural effusions or pneumothorax.? ? Mediastinum:? Mediastinal contours appear unchanged.? Heart size is normal.? ? Bones and chest wall:? No suspicious bony lesions.? Overlying soft tissues appear unremarkable.? ? IMPRESSION:? No acute cardiopulmonary abnormality. ? ? ? Dictated by: Dhruv Maurer M.D. on 10/29/2021 at 13:05 ? ? Approved by: Dhruv Maurer M.D. on 10/29/2021 at 13:06?? ECG Data Attestation: I personally reviewed and interpreted this ECG as follows: Interpretation: Initial EKG Sinus rhythm Ventricular rate 80 Normal axis Normal QRS Normal QTC No ST T wave changes Repeat EKG Sinus rhythm Ventricular rate of 71 Normal axis Normal QRS Normal QTC No ST T wave changes MDM Narrative Medical decision making narrative: EKG x2 was unremarkable. Chest x-ray is unremarkable. Troponin x2 is negative. I do have a high suspicion that her presenting symptoms are GI in origin. We did discuss other things she could try to include Carafate and also a H2 elana. We discussed the importance of contacting her primary doctor for a follow-up to discuss further workup of both potential GI and cardiac origin. She was given return precautions. She expressed understanding and agreement. Discharge Plan Departure Patient Disposition: Home Clinical Impression: Atypical chest pain, Gastroesophageal reflux disease Instructions: DI for Gastroesophageal Reflux Disease (GERD), DI for Atypical Chest Pain Activity Restrictions/Additional Instructions: I recommend that you try medicine called famotidine/Pepcid. You can purchase this [id number]. You can also take the Carafate like we discussed. Contact your primary doctor for further workup. Return to the emergency department for any new or worsening symptoms. Prescriptions: New sucralfate [Carafate] 100 mg/mL suspension 10 ml PO QACHS Qty: 420 0RF No Action lidocaine 5 % adhesive patch,medicated 1 patch topical DAILY PRN (Reason: pain / discomfort) 0RF duloxetine 30 mg capsule,delayed release(DR/EC) 90 mg PO QAM 0RF hydrochlorothiazide 12.5 mg tablet 12.5 mg PO DAILY 0RF albuterol sulfate 90 mcg/actuation Hfa Aerosol Inhaler 1 inh INHALATION QID PRN (Reason: Wheezing) 0RF Referrals: Rose Ernst PA-C [Primary Care Provider] -
== END 2021-10-29 18:56 | disposition home or self-care (01) ==
PROVIDERS: Emergency Medicine; Emergency Provider Emergency Medicine; PCP Physician Assistant
DX: R07.89 Other chest pain (principal); K21.9 Gastro-esophageal reflux disease without esophagitis; Z20.822 Contact with and (suspected) exposure to COVID-19
CPT/HCPCS: 36415; 71045; 80053; 82550; 83690; 83735; 84484; 85025; 87635; 93005; 99284; C9803

== ENCOUNTER → 2021-12-27 17:15 | Outpatient (CLI) | payer MEDICARE, OTHER, SELFPAY ==
[2021-12-27 18:01] LABS: Add Manual Diff / Slide Review NO; Basophils Absolute Auto 0 /uL (0-100); Basophils Percent Auto 0.7 % (0-2); Eosinophils Absolute Auto 200 /uL (0-450); Eosinophils Percent Auto 2.7 % (2-4); Hematocrit 40.5 % (36-46); Hemoglobin 13.4 g/dL (12.0-16.0); Lymphocytes Absolute Auto 1700 /uL (1100-4500); Lymphocytes Percent Auto 25.5 % (25-40); Mean Corpuscular Hemoglobin 29.5 PG (26-34); Mean Corpuscular Volume 89.4 fL (80-100); Monocytes Absolute Auto 700 /uL (0-900); Monocytes Percent Auto 10.4 % (3-14); Neutrophils Absolute Auto 4000 /uL (1500-7000); Neutrophils Percent Auto 60.7 % (50-75); Platelet Count 212 X10^3/uL (150-400); Red Blood Cell Count 4.53 X10^6/uL (4.0-5.2); Red Cell Distribution Width 13.6 % (11.6-14.8); White Blood Cell Count 6.6 X10^3/uL (4.5-11.0)
[2021-12-27 18:17] LABS: Alanine Aminotransferase 30 IU/L (<35); Albumin 4.8 g/dL (3.5-5.0); Albumin Globulin Ratio 1.4 (1.0-2.8); Alkaline Phosphatase 56 U/L (38-126); Aspartate Aminotransferase 35 IU/L (14-36); BUN Creatinine Ratio 19.8 (6-22); Bilirubin Total 0.4 mg/dL (0.2-1.3); Blood Urea Nitrogen 17 mg/dL (7-17); Calcium 9.7 mg/dL (8.4-10.2); Carbon Dioxide 29 mmol/L (22-32); Chloride 101 mmol/L (98-107); Estimated Glomerular Filt Rate > 60.0 mL/min (>60); Globulin 3.5 g/dL (1.7-4.1); Glucose 103 mg/dL (80-110); HEMOLYSIS < 15 (0-50); Potassium 3.7 mmol/L (3.4-5.1); Sodium 138 mmol/L (137-145); Total Protein 8.3 g/dL (6.3-8.2)
== END ==
PROVIDERS: PCP Physician Assistant; Referring Provider Surgery; Visit Provider Surgery
DX: R10.32 Left lower quadrant pain (principal)
CPT/HCPCS: 36415; 80053; 85025; 99214

== ENCOUNTER → 2022-01-03 11:25 | Outpatient (CLI) | payer MEDICARE, SELFPAY ==
--- NOTE | 2022-01-03 11:31 | DI.CT.S_ITS ---
PROCEDURE: CT ABDOMEN PELVIS W CON INDICATIONS: Left lower quadrant pain TECHNIQUE: After the administration of intravenous contrast, axial sections acquired from the lung bases to the pubic symphysis. Coronal and sagittal reformats were performed. For radiation dose reduction, the following was used: automated exposure control, adjustment of mA and/or kV according to patient size. COMPARISON: [facility], CT, CT ABDOMEN PELVIS W CON, 07/25/2020, 12:33. FINDINGS: Lower thorax: The lung bases are clear. Heart size normal. No hiatal hernia. Liver: Normal in size and attenuation. No contour deformity present. Small right hepatic and left hepatic simple cyst measures 1.5 cm Biliary system: Multiple stones noted in the lumen the gallbladder layering dependently. No CT evidence of acute inflammatory change. Pancreas: Unremarkable without mass or inflammation evident. Spleen: Normal in size and density. Adrenals: Normal morphology and density. Reproductive system: Unremarkable as visualized. Urinary system: Normal renal size and attenuation. No renal calculi, hydronephrosis, or solid mass present. Urinary bladder unremarkable. Gastrointestinal system: The bowel is unremarkable without evidence of bowel obstruction or inflammation. The stomach appears unremarkable. There is a small diverticuli and trace inflammatory change noted at the distal aspect of the left descending colon. No abscess or free air present. Appendix: No findings to suggest acute appendicitis. Peritoneal spaces: No mesenteric or retroperitoneal adenopathy. No free air. No free fluid. Vasculature: The IVC, aorta and iliac vasculature are unremarkable. Abdominal wall: Abdominal wall intact without evidence of ventral or inguinal hernias. Musculoskeletal: Normal bone mineralization. No acute fractures. IMPRESSION: 1. Trace left pericolonic inflammatory change and single diverticuli consistent with a very mild uncomplicated diverticulitis. No abscess or obstruction. 2. Cholelithiasis without CT evidence of acute cholecystitis. Approved by: Benja Pacheco M.D. on 01/03/2022 at 14:08
--- NOTE | 2022-01-03 11:31 | DI.CT.S_ITS ---
PROCEDURE: CT ANGIO CHEST PE PROTOCOL INDICATIONS: Shortness of breath TECHNIQUE: Helical axial CT of the chest was obtained after intravenous contrast injection utilizing an angiographic technique and reformatted in multiple planes. Radiation dose reduction was achieved utilizing automated exposure control and/or adjustment of the dose parameters according to patient's size. COMPARISON: [facility], CT, PE STUDY (CTA CHEST), 01/01/2018, 17:57. [facility], RG, CT ABDOMEN/PELVIS WITH CONTRAST, 12/21/2021, 5:50. FINDINGS: Image quality: Excellent. Pulmonary arteries: Pulmonary arteries are normal in size, and demonstrate no intraluminal filling defects to suggest central pulmonary embolism. Lungs and pleura: Lungs are clear. No pleural effusions or pneumothorax. Central and peripheral airways are patent. Mediastinum: Heart size is normal, without pericardial effusion. No mediastinal or hilar adenopathy. Thoracic aorta is normal in caliber and enhancement. Esophagus is normal in caliber, without hiatal hernia. Bones and chest wall: No suspicious bony lesions. Ribs and thoracic spine appear intact throughout. Thyroid gland contains a 1.6 cm hypodense right thyroid lesion. No axillary or supraclavicular adenopathy. Abdomen: Stones noted in the lumen of the gallbladder. 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 IMPRESSION: 1. No evidence of pulmonary embolism, aortic dissection or aneurysm. 2. Cholelithiasis and right thyroid nodule, similar to prior exam 2018. 3. 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 Approved by: Benja Pacheco M.D. on 01/03/2022 at 14:36
== END ==
PROVIDERS: PCP Physician Assistant Medical; Referring Provider Surgery; Visit Provider Surgery
DX: R06.02 Shortness of breath (principal); R10.32 Left lower quadrant pain; K80.20 Calculus of gallbladder without cholecystitis without obstruction; E04.1 Nontoxic single thyroid nodule; Q27.39 Arteriovenous malformation, other site
CPT/HCPCS: 71275; 74177

== ENCOUNTER → 2024-05-05 | Outpatient (CLI) | payer MEDICARE, SELFPAY ==
--- NOTE | 2024-05-05 | PATH_ITS ---
Note [facility] Accession Number: [id number] TESTS RESULT FLAG UNITS REF RANGE LAB Clinician Provided Cytology Information No. of containers..01 Other (Miscellaneous) No. of containers..08 Previously Prepared Cytology Slide Source: RIGHT THYROID NODULE DIAGNOSIS: RIGHT THYROID NODULE ATYPIA OF UNDETERMINED SIGNIFICANCE. [place] CATEGORY III. ATYPIA OF UNDETERMINED SIGNIFIANCE - NUCLEAR ATYPIA. MOLECULAR STUDIES PENDING; RESULTS WILL BE REPORTED SEPARATELY. Pathologist ICD10: R89.6 Signed out by: Arely Drake MD, Pathologist NPI- [id number] Performed by: Aleksandra Terry, Ergonomist ([facility]) Gross description: 30 CC, RED, CLEAR RECIEVED: IN CYTOLYT WITH 9 ALCOHOL FIXED AND 9 QUICK STAINED SLIDES ALSO 1 RNA VIAL WILL ON 08-08-2025.VO /VDU 05/06/2024 0635 Local FLAG LEGEND: L-Low Normal,H-High Normal,LL-Alert Low,HH-Alert High <-Panic Low,>-Panic High,A-Abnormal,AA-Critical Abnormal Performed at: 01 =[facility] [employer], [place] [address] Elver Mosqueda MD, Specimen Comment: [id number] Performed at: [address] [facility] [employer] [address], [place], [place] [id number] MD Elver Mosqueda MD Phone: [phone]
--- NOTE | 2024-05-05 12:40 | DI.US.S_ITS ---
PROCEDURE: US FINE NEEDLE ASPIRATION INDICATIONS: Nontoxic single thyroid nodule TECHNIQUE: The indications, alternatives, benefits, risks, and complications of the procedure were explained to the patient. Written informed consent was obtained and placed in the chart. The area of interest was examined sonographically and a site was chosen for ultrasound guided percutaneous sampling. The skin was prepared and draped in the usual fashion, and anesthetized with 1% lidocaine infiltrated from the skin down to the lesion. Multiple passes were then performed, with contents emptied into an appropriate pathology specimen container. A bandage was applied to the area of access at completion of the study. COMPARISON: Outside Facility, RG, US THYROID, 03/30/2024, 16:39. 03/30/2024 ultrasound thyroid. FINDINGS: Location(s) of lesion(s) sampled: Right thyroid [place]: 25 gauge hypodermic needles. Number of passes: 9 Medications: 1% lidocaine for local anaesthesia. Complications: None. IMPRESSION: Successful ultrasound-guided right thyroid fine needle aspiration, with cytology results pending. Dictated by: Oscar Barton M.D. on 05/19/2024 at 15:18 Approved by: Oscar Barton M.D. on 05/19/2024 at 15:20
== END ==
LOC: US 12:38
PROVIDERS: PCP Physician Assistant Medical; Referring Provider Physician Assistant Medical; Visit Provider Physician Assistant Medical
DX: E04.1 Nontoxic single thyroid nodule (principal)
CPT/HCPCS: 10005

== ENCOUNTER 2025-01-27 12:52 | Emergency (ER) | payer MEDICARE, SELFPAY ==
[2025-01-27 13:15] VITALS: BP 185/99; PULSE 85; RESP 18; TEMP 36.6; O2SAT 97; BMI 33.2
--- NOTE | 2025-01-27 13:20 | EKG_ITS ---
[address] [address] Test Date: 2025-01-27 Pat Name: Lorna Mcdonald Department: [facility] Room: Gender: Female Health Care Sanitary Technician: LAM : 1955 Requested By: Order Number: [id number] Reading MD: Emmanuel العلي Measurements Intervals [place] Rate: 83 P: 64 OK: 150 QRS: 32 QRSD: 82 T: 38 QT: 376 QTc: 441 Interpretive Statements Normal sinus rhythm Electronically Signed On 01-28-2025 19:10:19 PDT by Emmanuel العلي
[2025-01-27 14:29] LABS: Add Manual Diff / Slide Review NO; Basophils Absolute Auto 0 /uL (0-100); Basophils Percent Auto 0.4 % (0-2); Eosinophils Absolute Auto 100 /uL (0-450); Eosinophils Percent Auto 2.6 % (2-4); Hematocrit 41.3 % (36-46); Hemoglobin 13.8 g/dL (12.0-16.0); Lymphocytes Absolute Auto 1100 /uL (1100-4500); Lymphocytes Percent Auto 21.3 % (25-40); Mean Corpuscular HGB Conc 33.5 % (30-36); Mean Corpuscular Hemoglobin 30.2 PG (26-34); Mean Corpuscular Volume 90.2 fL (80-100); Monocytes Absolute Auto 500 /uL (0-900); Monocytes Percent Auto 9.8 % (3-14); Neutrophils Absolute Auto 3400 /uL (1500-7000); Neutrophils Percent Auto 65.9 % (50-75); Platelet Count 192 X10^3/uL (150-400); Red Blood Cell Count 4.58 X10^6/uL (4.0-5.2); Red Cell Distribution Width 14.1 % (11.6-14.8); White Blood Cell Count 5.2 X10^3/uL (4.5-11.0)
[2025-01-27 14:41] LABS: Alanine Aminotransferase 26 IU/L (<35); Albumin 5.1 g/dL (3.5-5.0); Albumin Globulin Ratio 1.8 (1.0-2.8); Alkaline Phosphatase 56 U/L (38-126); Aspartate Aminotransferase 31 IU/L (14-36); BUN Creatinine Ratio 23.8 (6-22); Bilirubin Total 0.8 mg/dL (0.2-1.3); Blood Urea Nitrogen 19 mg/dL (7-17); Calcium 10.5 mg/dL (8.4-10.2); Carbon Dioxide 22 mmol/L (22-32); Chloride 104 mmol/L (98-107); Estimated Glomerular Filt Rate > 60 mL/min (>60); Globulin 2.9 g/dL (1.7-4.1); Glucose 136 mg/dL (80-110); HEMOLYSIS < 15 (0-50); Lipase 72 U/L (23-300); Potassium 3.7 mmol/L (3.4-5.1); Sodium 141 mmol/L (137-145)
--- NOTE | 2025-01-27 15:48 | ED_ITS ---
HPI - Abdominal Pain <Rosa Zavala PA-C - Last Filed: 01/27/25 17:32> General Chief Complaint: Abdominal Pain Stated Complaint: Left lower side pain Time Seen by Provider: 01/27/25 15:27 Source: patient Mode of arrival: Ambulatory History of Present Illness HPI narrative: Ms. Mcdonald is a very pleasant 69-year-old female with a past medical history of hiatal hernia, total hysterectomy, diverticulitis, gallstones who presents to the emergency department for left lower quadrant abdominal pain x 2-3 days. Patient also feels slightly bloated in the left lower quadrant area of her abdomen, pain wraps around to her left low back region. She has slight nausea but no vomiting. Symptoms were precipitated by eating cheese pizza. She also had some constipation for approximately 2 days however she did have a normal soft bowel movement this morning. Reports that her symptoms feel very similar to when she had colitis in 2021, she saw General surgery Dr. Arango and had a CT with oral contrast which revealed a small area of diverticulitis. She denies any dysuria, hematuria, fevers, chills, diarrhea, melena, hematochezia, flank pain. Related Data Home Medications Medication Instructions Recorded Confirmed albuterol sulfate 90 mcg/actuation 1 inh inhalation QID PRN Wheezing 07/25/20 12/27/21 aerosol inhaler duloxetine 30 mg capsule,delayed 90 mg PO QAM 07/25/20 12/27/21 release hydrochlorothiazide 12.5 mg tablet 12.5 mg PO DAILY 07/25/20 12/27/21 lidocaine 5 % topical patch 1 patch topical DAILY PRN pain / 07/25/20 12/27/21 discomfort Previous Rx's Medication Instructions Recorded sucralfate 100 mg/mL oral 10 ml PO QACHS #420 mL 10/29/21 suspension (Carafate) amoxicillin 500 mg-potassium 1 tab PO TID #30 tabs 01/03/22 clavulanate 125 mg tablet (Augmentin) amoxicillin 875 mg-potassium 1 tab PO Q12H 10 days #20 tabs 01/27/25 clavulanate 125 mg tablet Allergies Allergy/AdvReac Type Severity Reaction Status Date / Time doxycycline [DOXYCYCLINE] AdvReac Mild NAUSEA Verified 12/27/21 16:24 erythromycin base AdvReac Unknown GI UPSET Verified 12/27/21 16:24 [ERYTHROMYCIN BASE] morphine [MORPHINE] AdvReac Unknown HALLUCINATI Verified 12/27/21 16:24 ON Review of Systems <Rosa Zavala PA-C - Last Filed: 01/27/25 17:32> Review of Systems ROS Unobtainable: All systems reviewed & are unremarkable except as noted in HPI and below Patient History <Rosa Zavala PA-C - Last Filed: 01/27/25 17:32> Medical History (Updated 01/27/25 @ 17:21 by Rosa Zavala PA-C) Hiatal hernia Social History Smoking Status: Never smoker Smoking Status: Never smoker alcohol intake frequency: a few times a month Exam <Rosa Zavala PA-C - Last Filed: 01/27/25 17:32> Narrative Exam Narrative: GENERAL: 69 year old patient appears stated age. Well-developed patient, in no acute distress. HEAD: Atraumatic. Normocephalic. NECK: Trachea midline. Cervical ROM intact. CARDIOVASCULAR: Regular rate and rhythm. RESPIRATORY: ?Nonlabored respirations. ?Speaking in clear, full sentences. ?Clear to auscultation. Breath sounds equal bilaterally. No wheezes, rales, or rhonchi. ? GASTROINTESTINAL: Abdomen soft, nondistended, bowel sounds present. She is tenderness to palpation of the left lower quadrant with no rebound or guarding. No erythema or obvious masses. EXTREMITIES: No edema or joint tenderness. BACK: No CVA tenderness. NEURO: AOx3. ?Clear speech. ?Moves all 4 extremities appropriately. SKIN: No rash or erythema of visible areas Initial Vital Signs Initial Vital Signs: Vital Signs Temperature 98 F 01/27/25 13:15 Pulse Rate 85 01/27/25 13:15 Respiratory Rate 18 01/27/25 13:15 Blood Pressure 185/99 H 01/27/25 13:15 Pulse Oximetry 97 01/27/25 13:15 Oxygen Delivery Method Room Air 01/27/25 13:15 <Farhana Mendoza DO - Last Filed: 02/04/25 09:14> Initial Vital Signs Initial Vital Signs: Vital Signs Temperature 98 F 01/27/25 13:15 Pulse Rate 85 01/27/25 13:15 Respiratory Rate 18 01/27/25 13:15 Blood Pressure 185/99 H 01/27/25 13:15 Pulse Oximetry 97 01/27/25 13:15 Oxygen Delivery Method Room Air 01/27/25 13:15 Course <Rosa Zavala PA-C - Last Filed: 01/27/25 17:32> Orders Ordered: Discontinued Medications Sodium Chloride (Normal Saline 0.9%) 1,000 mls @ 1,000 mls/hr IV BOLUS ONE Stop: 01/27/25 16:53 Last Infusion: 01/27/25 17:38 Dose: Infused Documented By: Admin: 01/27/25 16:12 Dose: 1,000 mls/hr Documented By: TI Ketorolac Tromethamine (Ketorolac 30 Mg/Ml Vial) 15 mg IV NOW ONE Stop: 01/27/25 15:55 Last Admin: 01/27/25 16:11 Dose: 15 mg Documented By: TI Ondansetron HCl (Ondansetron 4 Mg/2 Ml Inj) 4 mg IV NOW PRN PRN Reason: Nausea And Vomiting Ondansetron HCl (Ondansetron 4 Mg Odt) 4 mg PO NOW PRN PRN Reason: Nausea And Vomiting Ondansetron HCl (Ondansetron 4 Mg/2 Ml Inj) 4 mg IV NOW ONE Stop: 01/27/25 15:55 Last Admin: 01/27/25 16:12 Dose: 4 mg Documented By: TI Vital Signs Vital signs: Vital Signs - 8 hr 01/27/25 13:15 Temperature 98 F Pulse Rate 85 Respiratory Rate 18 Blood Pressure 185/99 H Pulse Oximetry 97 Oxygen Delivery Method Room Air <Farhana Mendoza DO - Last Filed: 02/04/25 09:14> Orders Ordered: Discontinued Medications Sodium Chloride (Normal Saline 0.9%) 1,000 mls @ 1,000 mls/hr IV BOLUS ONE Stop: 01/27/25 16:53 Last Infusion: 01/27/25 17:38 Dose: Infused Documented By: Admin: 01/27/25 16:12 Dose: 1,000 mls/hr Documented By: TI Ketorolac Tromethamine (Ketorolac 30 Mg/Ml Vial) 15 mg IV NOW ONE Stop: 01/27/25 15:55 Last Admin: 01/27/25 16:11 Dose: 15 mg Documented By: TI Ondansetron HCl (Ondansetron 4 Mg/2 Ml Inj) 4 mg IV NOW PRN PRN Reason: Nausea And Vomiting Ondansetron HCl (Ondansetron 4 Mg Odt) 4 mg PO NOW PRN PRN Reason: Nausea And Vomiting Ondansetron HCl (Ondansetron 4 Mg/2 Ml Inj) 4 mg IV NOW ONE Stop: 01/27/25 15:55 Last Admin: 01/27/25 16:12 Dose: 4 mg Documented By: TI Vital Signs Vital signs: Vital Signs - 8 hr 01/27/25 13:15 Temperature 98 F Pulse Rate 85 Respiratory Rate 18 Blood Pressure 185/99 H Pulse Oximetry 97 Oxygen Delivery Method Room Air MDM - Abdominal Pain <Rosa C LORENA Zavala - Last Filed: 01/27/25 17:32> Medical Records Attestation: I reviewed the patient's medical records. Medical records narrative: Reviewed general surgery note 12/27/2021 and prior abdomen/pelvis CT 01/03/2022 revealing [address] without CT evidence of acute cholecystitis, trace left pericolonic inflammatory change and single diverticula consistent with very mild uncomplicated diverticulitis. Lab Data 01/27/25 13:20 01/27/25 13:20 Labs: Lab Results 01/27/25 Range/Units 13:20 WBC 5.2 (4.5-11.0) X10^3/uL RBC 4.58 (4.0-5.2) X10^6/uL Hgb 13.8 (12.0-16.0) g/dL Hct 41.3 (36-46) % MCV 90.2 (80-100) fL MCH 30.2 (26-34) PG MCHC 33.5 (30-36) % RDW 14.1 (11.6-14.8) % Plt Count 192 (150-400) X10^3/uL Neut % (Auto) 65.9 (50-75) % Lymph % (Auto) 21.3 L (25-40) % Ross % (Auto) 9.8 (3-14) % Eos % (Auto) 2.6 (2-4) % Baso % (Auto) 0.4 (0-2) % Neut # (Auto) 3400 (3765-6293) /uL Lymph # (Auto) 1100 (2338-8673) /uL Ross # (Auto) 500 (0-900) /uL Eos # (Auto) 100 (0-450) /uL Baso # (Auto) 0 (0-100) /uL Sodium 141 (137-145) mmol/L Potassium 3.7 (3.4-5.1) mmol/L Chloride 104 (98-107) mmol/L Carbon Dioxide 22 (22-32) mmol/L BUN 19 H (7-17) mg/dL Creatinine 0.80 (0.52-1.04) mg/dL Estimated GFR > 60 (>60) mL/min BUN/Creatinine Ratio 23.8 H (6-22) Glucose 136 H (80-110) mg/dL Calcium 10.5 H (8.4-10.2) mg/dL Total Bilirubin 0.8 (0.2-1.3) mg/dL AST 31 (14-36) IU/L ALT 26 (<35) IU/L Alkaline Phosphatase 56 (38-126) U/L Total Protein 8.0 (6.3-8.2) g/dL Albumin 5.1 H (3.5-5.0) g/dL Globulin 2.9 (1.7-4.1) g/dL Albumin/Globulin Ratio 1.8 (1.0-2.8) Lipase 72 (23-300) U/L Point of care testing: Urine Dip Bedside Urine Glucose Negative Bedside Urine Bilirubin - Negative Bedside Urine Ketone + 15 Urine Specific Colony 1.015 Bedside Urine Occult Blood - Negative Bedside Urine pH 6.5 Bedside Urine Protein - Negative Bedside Urine Urobilinogen - Negative Bedside Urine Nitrite - Negative Bedside Urine Leukocytes - Negative Esterase Imaging Data CT scan - abdomen/pelvis: Radiologist's Impression: PROCEDURE: CT ABDOMEN PELVIS W CON INDICATIONS: LLQ abd pain rad to low back; hx diverticulitis TECHNIQUE: After the administration of intravenous contrast, axial sections acquired from the lung bases to the pubic symphysis. Coronal and sagittal reformats were performed. For radiation dose reduction, the following was used: automated exposure control, adjustment of mA and/or kV according to patient size. COMPARISON: [facility], CT, CT ABDOMEN PELVIS W CON, 01/03/2022, 11:38. FINDINGS: Image quality: Diagnostic Lower chest: Unremarkable lung bases Normal heart size Liver: Suspect right lobe cyst again seen. Far left lobe cyst also again seen. Gallbladder and biliary system: Cholelithiasis. Nondilated. Pancreas: No ductal dilation Spleen: Nonenlarged Adrenals: No discrete nodules Kidneys: No solid renal mass or hydronephrosis Vessels and lymph nodes: The main portal vein is patent. No abdominal aortic aneurysm. Mild atherosclerotic calcifications. No pathologic lymph nodes by size criteria. Bowel and peritoneum: No small bowel obstruction. Nondilated appendix. No acute bowel inflammatory changes. No drainable abscess or ascites. Body wall: Unremarkable Pelvis: Bladder is unremarkable. Uterus is absent Bones: No aggressive appearing osseous abnormality. There are degenerative changes. IMPRESSION: No CT evidence of bowel inflammation. No bowel obstruction. No drainable abscess or ascites. Nondilated appendix. Cholelithiasis. Other findings above. [facility] Narrative Medical decision making narrative: 69-year-old female with a past medical history of hiatal hernia, total hysterectomy, diverticulitis, gallstones who presents to the emergency department for left lower quadrant abdominal pain x 2-3 days. Differential diagnosis includes but is not limited to diverticulitis, colitis, UTI, intussusception, intra-abdominal abscess, nephrolithiasis, ureterolithiasis, etc. On exam patient is in no acute distress, nontoxic appearing, vital signs appropriate except for mildly elevated blood pressure. She is left lower quadrant abdominal tenderness, no rebound or guarding. We will check labs, CT abdomen and pelvis, treat with fluids Zofran and Toradol. Labs reveal normal WBC count 5.2, hemoglobin 13.8, hematocrit 41.3, sodium 141, potassium 3.7, BUN 19, creatinine 0.80. Glucose 136, calcium slightly elevated at 10.5. She received 1 L of IV fluids which will help with both hypercalcemia and the slightly elevated BUN/creatinine ratio. Urinalysis negative for infection, she does have some ketones. Patient's pain resolved after ED treatment. Her CT scan reveals no evidence of bowel inflammation, no bowel obstruction, no drainable abscess or ascites, nondilated appendix, cholelithiasis. Her CT scan report was printed and discussed with her including all incidental findings. At this time I believe her symptoms are likely due to constipation, underlying diverticulosis, perhaps early development of diverticulitis. After shared decision-making with the patient, we will not start antibiotics at this time however I did send her a course of Augmentin b.i.d. times 10 days to the pharmacy if she has persistent symptoms for the next few days while she is trialing clear liquid diet, Toradol for pain, MiraLax for constipation. Patient verbalized understanding of this however we also discussed strict ED return precautions and she understands that if she has any new or worsening pain, fevers or other symptoms to come back to the ED for further evaluation. Toradol and Augmentin were sent to her pharmacy of choice. Patient is feeling much better, abdominal exam benign, agreeable to the plan and stable for discharge home. ED return precautions discussed. <Farhana Mendoza, DO - Last Filed: 02/04/25 09:14> Lab Data Labs: Lab Results 01/27/25 Range/Units 13:20 WBC 5.2 (4.5-11.0) X10^3/uL RBC 4.58 (4.0-5.2) X10^6/uL Hgb 13.8 (12.0-16.0) g/dL Hct 41.3 (36-46) % MCV 90.2 (80-100) fL MCH 30.2 (26-34) PG MCHC 33.5 (30-36) % RDW 14.1 (11.6-14.8) % Plt Count 192 (150-400) X10^3/uL Neut % (Auto) 65.9 (50-75) % Lymph % (Auto) 21.3 L (25-40) % Ross % (Auto) 9.8 (3-14) % Eos % (Auto) 2.6 (2-4) % Baso % (Auto) 0.4 (0-2) % Neut # (Auto) 3400 (6504-6706) /uL Lymph # (Auto) 1100 (6557-0727) /uL Ross # (Auto) 500 (0-900) /uL Eos # (Auto) 100 (0-450) /uL Baso # (Auto) 0 (0-100) /uL Sodium 141 (137-145) mmol/L Potassium 3.7 (3.4-5.1) mmol/L Chloride 104 (98-107) mmol/L Carbon Dioxide 22 (22-32) mmol/L BUN 19 H (7-17) mg/dL Creatinine 0.80 (0.52-1.04) mg/dL Estimated GFR > 60 (>60) mL/min BUN/Creatinine Ratio 23.8 H (6-22) Glucose 136 H (80-110) mg/dL Calcium 10.5 H (8.4-10.2) mg/dL Total Bilirubin 0.8 (0.2-1.3) mg/dL AST 31 (14-36) IU/L ALT 26 (<35) IU/L Alkaline Phosphatase 56 (38-126) U/L Total Protein 8.0 (6.3-8.2) g/dL Albumin 5.1 H (3.5-5.0) g/dL Globulin 2.9 (1.7-4.1) g/dL Albumin/Globulin Ratio 1.8 (1.0-2.8) Lipase 72 (23-300) U/L Point of care testing: Urine Dip Bedside Urine Glucose Negative Bedside Urine Bilirubin - Negative Bedside Urine Ketone + 15 Urine Specific Colony 1.015 Bedside Urine Occult Blood - Negative Bedside Urine pH 6.5 Bedside Urine Protein - Negative Bedside Urine Urobilinogen - Negative Bedside Urine Nitrite - Negative Bedside Urine Leukocytes - Negative Esterase Discharge Plan Departure Patient Disposition: Home Clinical Impression: Abdominal pain, acute, left lower quadrant, Dehydration Constipation Qualifiers: Constipation type: unspecified constipation type Qualified Code(s): K59.00 - Constipation, unspecified Instructions: DI for Abdominal Pain-Adult Activity Restrictions/Additional Instructions: Dear Ms. Mcdonald, Thank you for coming to the emergency department. Today you were evaluated for left lower quadrant abdominal pain. The CT scan of your abdomen reveals no signs of bowel inflammation, obstruction or infection at this time. I am concerned that your symptoms are related to constipation, diverticulosis, potentially early development of diverticulitis. I would like you to eat a clear liquid diet for the next 1-2 days, then slowly increase to a soft diet and normal diet only as tolerated. Please use MiraLax daily with water to allow for softer bowel movements. You have been prescribed Toradol to use if needed for pain, you can also take this with acetaminophen/Tylenol if needed. You have been prescribed an antibiotic called Augmentin to take twice a day for 10 days IF your symptoms do not improve, as this is the treatment for diverticulitis. At this time, there is no indication that the antibiotics need to be started. Please however if you have any new or worsening symptoms, bloody stool, bloody vomit, fevers or severe pain return to ER. Please follow up with your primary care doctor within the next 2-3 days for ER follow-up. (If you do not have a PCP you can call [phone]. ?to schedule an appointment with an [facility] Primary Care Provider) IF YOU DEVELOP ANY NEW OR WORSENING SYMPTOMS, RETURN TO THE ER! Please read the attached instructions, they highlight more specific treatments and interventions for you at home. Thank you for letting me participate in your care, Rosa Zavala PA-C Prescriptions: New amoxicillin-pot clavulanate 875-125 mg tablet 1 tab PO Q12H 10 Days Qty: 20 0RF No Action amoxicillin-pot clavulanate [Augmentin] 500-125 mg tablet 1 tab PO TID Qty: 30 0RF sucralfate [Carafate] 100 mg/mL suspension 10 ml PO QACHS Qty: 420 0RF lidocaine 5 % adhesive patch,medicated 1 patch topical DAILY PRN (Reason: pain / discomfort) duloxetine 30 mg capsule,delayed release(DR/EC) 90 mg PO QAM hydrochlorothiazide 12.5 mg tablet 12.5 mg PO DAILY albuterol sulfate 90 mcg/actuation Hfa Aerosol Inhaler 1 inh INHALATION QID PRN (Reason: Wheezing) Referrals: Rose Ren PA-C [Primary Care Provider] - Stand Alone Forms: Patient Portal/API/Survey ED Sign-out <Farhana Mendoza DO - Last Filed: 02/04/25 09:14> Cosign ED Attending Samreen Attestation: I was available for consultation.
--- NOTE | 2025-01-27 16:02 | DI.CT.S_ITS ---
PROCEDURE: CT ABDOMEN PELVIS W CON INDICATIONS: LLQ abd pain rad to low back; hx diverticulitis TECHNIQUE: After the administration of intravenous contrast, axial sections acquired from the lung bases to the pubic symphysis. Coronal and sagittal reformats were performed. For radiation dose reduction, the following was used: automated exposure control, adjustment of mA and/or kV according to patient size. COMPARISON: [facility], CT, CT ABDOMEN PELVIS W CON, 01/03/2022, 11:38. FINDINGS: Image quality: Diagnostic Lower chest: Unremarkable lung bases Normal heart size Liver: Suspect right lobe cyst again seen. Far left lobe cyst also again seen. Gallbladder and biliary system: Cholelithiasis. Nondilated. Pancreas: No ductal dilation Spleen: Nonenlarged Adrenals: No discrete nodules Kidneys: No solid renal mass or hydronephrosis Vessels and lymph nodes: The main portal vein is patent. No abdominal aortic aneurysm. Mild atherosclerotic calcifications. No pathologic lymph nodes by size criteria. Bowel and peritoneum: No small bowel obstruction. Nondilated appendix. No acute bowel inflammatory changes. No drainable abscess or ascites. Body wall: Unremarkable Pelvis: Bladder is unremarkable. Uterus is absent Bones: No aggressive appearing osseous abnormality. There are degenerative changes. IMPRESSION: No CT evidence of bowel inflammation. No bowel obstruction. No drainable abscess or ascites. Nondilated appendix. Cholelithiasis. Other findings above. Dictated by: Ricardo Singh M.D. on 01/27/2025 at 16:26 Approved by: Ricardo Singh M.D. on 01/27/2025 at 16:30
[2025-01-27] MEDS: KETOROLAC 30 MG/ML VIAL 15 MG IV (16:11)
[2025-01-27] MEDS: SODIUM CHLORIDE 0.9% 1,000 ML 1000 ML IV (16:12)
[2025-01-27] MEDS: ONDANSETRON 4 MG/2 ML INJ IV (16:12)
[2025-01-27 17:43] VITALS: BP 181/82; PULSE 72; RESP 14; O2SAT 97
== END 2025-01-27 17:47 | disposition home or self-care (01) ==
PROVIDERS: Emergency Medicine; Emergency Provider Physician Assistant; PCP Physician Assistant Medical
DX: R10.32 Left lower quadrant pain (principal); R11.0 Nausea; K59.00 Constipation, unspecified; E86.0 Dehydration
CPT/HCPCS: 36415; 74177; 80053; 81003; 83690; 85025; 93005; 96361; 96374; 96375; 99284; J1885; J2405; Q9967